=== PATIENT | female | born 1955 | race Caucasian/White ===

== ENCOUNTER 2018-09-18 07:59 | Day surgery (SDC) | payer BC ==
[2018-09-18] MEDS ORDERED: MIDAZOLAM 1 MG/ML 2 ML INJ ×2 (10:50)
[2018-09-18] MEDS ORDERED: FENTAnyl 50 MCG/ML VIAL (10:50)
== END 2018-09-18 13:56 | disposition home or self-care (01) ==
LOC: GIL 07:59
DX: Z12.11 Encounter for screening for malignant neoplasm of colon (principal); K29.50 Unspecified chronic gastritis without bleeding; D12.3 Benign neoplasm of transverse colon; K64.8 Other hemorrhoids; K44.9 Diaphragmatic hernia without obstruction or gangrene; K21.9 Gastro-esophageal reflux disease without esophagitis
CPT/HCPCS: 43239; 88305; 88312